=== PATIENT | female | born 1960 | race Caucasian/White ===

== ENCOUNTER 2020-11-05 13:20 | Day surgery (SDC) | payer MEDICARE ==
[2020-11-05] MEDS ORDERED: LIDOCAINE HCL 2% 100 MG/5 ML IJ ONE (13:21)
[2020-11-05] MEDS ORDERED: Depo-Medrol 40 MG/ML IM ONE (13:21)
[2020-11-05] MEDS ORDERED: DIPRIVAN 200 MG/20 ML IV ONE (15:01)
[2020-11-05] MEDS ORDERED: Lactated Ringers 1,000 ML IV ONE (15:57)
--- NOTE | 2020-11-05 16:30 | XRAY ---
Indication: Bilateral L4-S1 MBB. Intraoperative fluoroscopy provided for 17 seconds. Single digital spot image submitted for interpretation demonstrates posterior needle tips projecting over the expected left and right L4-S1 nerve roots. Correlate with intraoperative findings/report.
--- NOTE | 2020-11-05 16:45 | XRAY ---
17 seconds fluoroscopy time in surgery for bilateral L4-S1 MBB.
== END 2020-11-05 15:28 | disposition home or self-care (01) ==
LOC: SDC-PAIN 13:20
PROVIDERS: ATTEND Psychiatry & Neurology Pain Medicine
DX: M47.816 Spondylosis without myelopathy or radiculopathy, lumbar region (principal); Z79.899 Other long term (current) drug therapy
CPT/HCPCS: 64493; 64494; 64495; 72020; 77002; J1030; J2704

== ENCOUNTER 2020-12-05 13:33 | Emergency (ER) | payer MEDICARE ==
--- NOTE | 2020-12-05 13:43 | ERPHSYRPT ---
- History of Present Illness Time Seen by Provider: 12/05/20 13:43 Source: patient Exam Limitations: no limitations Physician History: This is a 60-year-old white female with a history of chronic low back pain who is a patient of Dr. Byrne, a pain specialist. Approximately November 042020 patient was given a lumbar spine steroid injection. Over the last week, despite being on oxycodone and gabapentin medication for her back pain, patient states that her low back pain is worsening and she is having trouble sleeping because of the severe back spasms. Patient has not lost bowel or bladder control. She does not complain of any numbness down her feet and ankles. Patient has an appointment to see Dr. Byrne on 12/08/2020. Patient is looking for enough pain relief for her to sleep at night. Patient does not have any recent history of acute traumatic injury to her back. Timing/Duration: week(s) (1), worse Method of Injury: other (None) Quality: other (Muscle spasm) Back Pain Location: lumbar spine, paraspinous muscles Severity of Pain-Max: moderate Severity of Pain-Current: moderate Modifying Factors: Improves With: movement Associated Symptoms: lower back pain, muscle spasms, No loss of bowel control, No problems urinating, No light-headedness, No numbness in legs/feet, No sensory/motor loss, No tingling in legs/feet Previous symptoms: same symptoms as today Allergies/Adverse Reactions: Iodinated Contrast Media Allergy (Verified 12/05/20 14:04) latex Allergy (Verified 12/05/20 14:04) metoclopramide [From Reglan] Allergy (Verified 12/05/20 14:04) naproxen Allergy (Verified 12/05/20 14:04) Sulfa (Sulfonamide Antibiotics) Allergy (Verified 12/05/20 14:04) Home Medications: Aspirin EC 81 mg [Ecotrin 81 mg] 81 mg PO DAILY 12/05/20 [History] Budesonide/Formoterol Fumarate [Symbicort 80-4.5 Mcg Inhaler] 2 puffs IH BID 12/05/20 [History] Diltiazem HCl [Cartia Xt] 180 mg PO DAILY 12/05/20 [History] Gabapentin [Neurontin] 600 mg PO DAILY 12/05/20 [History] Omeprazole 40 mg PO DAILY 12/05/20 [History] Oxycodone HCl/Acetaminophen [Oxycodone-Acetaminophen 5-325] 1 each PO Q4-6HPRN PRN 12/05/20 [History] Tiotropium Gratis [Spiriva Respimat] 1 each IH DAILY 12/05/20 [History] Travel Risk - International Travel Have you traveled outside of the country in past 3 weeks: No - Coronavirus Screening Are you exhibiting any of the following symptoms?: No Close contact with a COVID-19 positive Pt in past 14-21 Days: No - Review of Systems Constitutional: No Symptoms Eyes: No Symptoms Ears, Nose, & Throat: No Symptoms Respiratory: No Symptoms Cardiac: No Symptoms Abdominal/Gastrointestinal: No Symptoms Genitourinary Symptoms: No Symptoms Musculoskeletal: Back Pain Skin: No Symptoms Neurological: No Symptoms Psychological: No Symptoms Endocrine: No Symptoms Hematologic/Lymphatic: No Symptoms Immunological/Allergic: No Symptoms All Other Systems: Reviewed and Negative - Past Medical History Pertinent Past Medical History: Yes - Past Surgical History Past Surgical History: Yes - Nursing Vital Signs Nursing Vital Signs: Initial Vital Signs Temperature 97.5 F 12/05/20 13:51 Pulse Rate 102 H 12/05/20 13:51 Respiratory Rate 18 12/05/20 13:51 Blood Pressure 136/99 12/05/20 13:51 O2 Sat by Pulse Oximetry 97 12/05/20 13:51 Pain Scale Pain Intensity 10 - Physical Exam General Appearance: no apparent distress, alert, anxiety Eye Exam: PERRL/EOMI, eyes nml inspection Ears, Nose, Throat Exam: normal ENT inspection, moist mucous membranes Neck Exam: normal inspection, non-tender, supple, full range of motion Respiratory Exam: normal breath sounds, lungs clear, airway intact, No chest tenderness, No respiratory distress Cardiovascular Exam: regular rate/rhythm, normal heart sounds, normal peripheral pulses Gastrointestinal Exam: soft, normal bowel sounds, No tenderness Pelvic Exam: not done Rectal Exam: not done Back Exam: decreased range of motion, muscle spasm Extremity Exam: normal inspection, normal range of motion, pelvis stable Neurologic Exam: alert, oriented x 3, cooperative, pile trimmer II-XII nml as tested, normal mood/affect, nml cerebellar function, nml station & gait (Patient walks with a walker), sensation nml Skin Exam: normal color, warm, dry Lymphatic Exam: No adenopathy SpO2 Interpretation: normal O2 Delivery: Room Air - Course Nursing assessment & vital signs reviewed: Yes Ordered Tests: Medication Summary Discontinued Medications Generic Name Dose Route Start Last Admin Trade Name Freq PRN Reason Stop Dose Admin Methylprednisolone Sodium 0 mg 12/05/20 14:46 Succinate 125 mg/ Sterile IM 12/05/20 14:47 Water 2 ml STAT ONE Hydromorphone HCl 0.5 mg 12/05/20 14:45 Hydromorphone 1 Mg/Ml Injection IM 12/05/20 14:46 STAT ONE Lorazepam 0.5 mg 12/05/20 14:46 Ativan 2 Mg/1 Ml Vial IM 12/05/20 14:47 STAT ONE Ondansetron HCl 4 mg 12/05/20 14:46 Zofran Odt 4 Mg PO 12/05/20 14:47 STAT ONE - Progress Progress: unchanged Counseled pt/family regarding: diagnosis, need for follow-up - Departure Departure Disposition: Home Clinical Impression: Acute exacerbation of chronic low back pain Condition: Stable Critical Care Time: No Referrals: AURE BOLTON, [employer] [Primary Care Provider] - Additional Instructions: Take your medication as prescribed. Continue your oxycodone gabapentin as prescribed. Take the steroids as prescribed. Only use the Ativan at nighttime 2 hours after your gabapentin dose and only on an as needed basis. Prescriptions: Lorazepam 0.5 mg [Ativan 0.5 MG] 0.5 mg PO QHS PRN #3 tablet PRN Reason: Muscle Spasms Lorazepam 1 mg [Ativan 1 MG] 0.5 mg PO QHS PRN #3 tablet PRN Reason: Anxiety Prednisone 10 mg [Deltasone 10 mg] 10 mg PO TID #12 tablet
[2020-12-05] MEDS ORDERED: Hydromorphone 1 mg/ml Injection IM ONE (14:45)
[2020-12-05] MEDS ORDERED: Ativan 2 MG/1 ML VIAL IM ONE (14:46)
[2020-12-05] MEDS ORDERED: ZOFRAN ODT 4 MG PO ONE (14:46)
[2020-12-05] MEDS ORDERED: solu-MEDROL 125 MG, Sterile H2O 10 ml 2 ML IM ONE ×2 (14:46)
[2020-12-05] MEDS ORDERED: Ativan 2 MG/1 ML VIAL ONE (15:01)
[2020-12-05] MEDS ORDERED: ZOFRAN ODT 4 MG ONE (15:01)
[2020-12-05] MEDS ORDERED: solu-MEDROL ONE (15:02)
[2020-12-05] MEDS ORDERED: Sterile H2O 10 ml IJ ONE (15:02)
[2020-12-05] MEDS ORDERED: Hydromorphone 1 mg/ml Injection ONE (15:02)
[2020-12-05 15:12] VITALS: BP 152/90; PULSE 88; O2SAT 96
== END 2020-12-05 15:19 | disposition home or self-care (01) ==
LOC: ED 13:33
DX: M54.5 Low back pain (principal)
CPT/HCPCS: 96372; 99284; J1170; J2060; J2930; Q0162

== ENCOUNTER 2020-12-17 12:23 | Day surgery (SDC) | payer MEDICARE ==
[2020-12-17] MEDS ORDERED: BUPIVACAINE 0.5% VIAL IJ ONE (12:24)
[2020-12-17] MEDS ORDERED: DIPRIVAN 200 MG/20 ML IV ONE (15:57)
[2020-12-17] MEDS ORDERED: BREVIBLOC 100 MG/10 ML IV ONE (16:18)
[2020-12-17] MEDS ORDERED: Lactated Ringers 1,000 ML IV ONE (16:40)
--- NOTE | 2020-12-17 17:09 | XRAY ---
Indication: Bilateral L4-S1 MBB. Intraoperative fluoroscopy provided for 11 seconds. Single digital spot image submitted for interpretation demonstrates posterior needle tips projecting over the expected left and right L4-S1 nerve roots. Correlate with intraoperative findings/report.
--- NOTE | 2020-12-17 17:53 | XRAY ---
11 seconds of fluoroscopy was used in surgery for a bilateral L4-S1 MBB.
== END 2020-12-17 16:40 | disposition home or self-care (01) ==
LOC: SDC-PAIN 12:23
PROVIDERS: ATTEND Psychiatry & Neurology Pain Medicine
DX: M47.816 Spondylosis without myelopathy or radiculopathy, lumbar region (principal); Z79.899 Other long term (current) drug therapy
CPT/HCPCS: 64493; 64494; 72020; 77002; J2704

== ENCOUNTER 2021-01-21 12:47 | Day surgery (SDC) | payer MEDICARE ==
[2021-01-21] MEDS ORDERED: Xylocaine 1% Vial 30 ML PF IJ ONE (12:48)
[2021-01-21] MEDS ORDERED: Depo-Medrol 40 MG/ML IM ONE (12:48)
[2021-01-21] MEDS ORDERED: BUPIVACAINE 0.5% VIAL IJ ONE (12:48)
[2021-01-21] MEDS ORDERED: DIPRIVAN 200 MG/20 ML IV ONE (14:23)
[2021-01-21] MEDS ORDERED: MORPHINE SULFATE 2 MG INJ ONE (14:44)
--- NOTE | 2021-01-21 15:14 | XRAY ---
Indication: L4-S1 RFA. Intraoperative fluoroscopy provided for 24 seconds. 3 digital spot images submitted for interpretation demonstrates posterior needle tips projecting over the expected left L4-S1 nerve roots. Correlate with intraoperative findings/report.
[2021-01-21] MEDS ORDERED: Lactated Ringers 1,000 ML IV ONE (15:23)
--- NOTE | 2021-01-21 16:44 | XRAY ---
24 seconds fluoroscopy time in surgery for left L4-S1 RFA.
== END 2021-01-21 14:55 | disposition home or self-care (01) ==
LOC: SDC-PAIN 12:47
PROVIDERS: ATTEND Psychiatry & Neurology Pain Medicine
DX: M47.817 Spondylosis without myelopathy or radiculopathy, lumbosacral region (principal); Z79.899 Other long term (current) drug therapy
CPT/HCPCS: 64635; 64636; 72100; 77002; J1030; J2001; J2270; J2704

== ENCOUNTER 2021-01-28 10:52 | Day surgery (SDC) | payer MEDICARE ==
[2021-01-28] MEDS ORDERED: Xylocaine 1% Vial 30 ML PF IJ ONE (10:53)
[2021-01-28] MEDS ORDERED: BUPIVACAINE 0.5% VIAL IJ ONE (10:53)
[2021-01-28] MEDS ORDERED: Depo-Medrol 40 MG/ML IM ONE (10:53)
[2021-01-28] MEDS ORDERED: DIPRIVAN 200 MG/20 ML IV ONE (15:30)
[2021-01-28] MEDS ORDERED: TORAdol 30 mg Injection ONE (15:46)
[2021-01-28] MEDS ORDERED: Hydromorphone 1 mg/ml Injection ONE (15:57)
[2021-01-28] MEDS ORDERED: Lactated Ringers 1,000 ML IV ONE (18:08)
--- NOTE | 2021-01-28 21:17 | XRAY ---
Indication: Right L4-S1 RFA. Intraoperative fluoroscopy provided for 28 seconds. 3 digital spot image submitted for interpretation demonstrates posterior needle tips projecting over the expected right L4-S1 nerve roots. Correlate with intraoperative findings/report.
--- NOTE | 2021-01-29 09:00 | XRAY ---
28 seconds fluoroscopy time in surgery for right L4-S1 RFA.
== END 2021-01-28 16:20 | disposition home or self-care (01) ==
LOC: SDC-PAIN 10:52
PROVIDERS: ATTEND Psychiatry & Neurology Pain Medicine
DX: M47.816 Spondylosis without myelopathy or radiculopathy, lumbar region (principal); Z79.899 Other long term (current) drug therapy
CPT/HCPCS: 64635; 64636; 72100; 77002; J1030; J1170; J1885; J2001; J2704

== ENCOUNTER 2021-05-13 13:47 | Day surgery (SDC) | payer MEDICARE ==
[2021-05-13] MEDS ORDERED: Sodium Chloride 0.9% 10 ML FLUSH Syringe IJ ONE (13:48)
[2021-05-13] MEDS ORDERED: Depo-Medrol 40 MG/ML IM ONE (13:48)
[2021-05-13] MEDS ORDERED: BENADRYL 50 MG/ML ONE (14:58)
[2021-05-13] MEDS ORDERED: Lactated Ringers 1,000 ML IV ONE (16:12)
[2021-05-13] MEDS ORDERED: DIPRIVAN 200 MG/20 ML IV ONE (16:14)
[2021-05-13] MEDS ORDERED: MORPHINE SULFATE 2 MG INJ ONE (16:44)
--- NOTE | 2021-05-13 17:10 | XRAY ---
41 seconds fluoroscopy time in surgery for left L4-S1 transforaminal TABITHA.
--- NOTE | 2021-05-13 17:10 | XRAY ---
Indication: Left L4-S1 transforaminal TABITHA. Intraoperative fluoroscopy provided for 41 seconds. 5 digital spot image submitted for interpretation demonstrates posterior needle tips projecting over the left L4 and L5 nerve roots. Small amount of contrast injected for needle tip placement. Correlate with intraoperative findings/report.
== END 2021-05-13 17:00 | disposition home or self-care (01) ==
LOC: SDC-PAIN 13:47
PROVIDERS: ATTEND Psychiatry & Neurology Pain Medicine
DX: M54.16 Radiculopathy, lumbar region (principal); I10 Essential (primary) hypertension; I48.91 Unspecified atrial fibrillation; Z79.899 Other long term (current) drug therapy
CPT/HCPCS: 64483; 64484; 72100; 77003; J1030; J1200; J2270; J2704; Q9966

== ENCOUNTER 2021-10-07 11:23 | Day surgery (SDC) | payer MEDICARE ==
[2021-10-07] MEDS ORDERED: Sodium Chloride 0.9(Preservative Free) 10 ML IJ ONE (11:24)
[2021-10-07] MEDS ORDERED: LIDOCAINE HCL 1% 50 MG/5 ML VL PF IJ ONE (11:24)
[2021-10-07] MEDS ORDERED: Depo-Medrol 40 MG/ML IM ONE ×2 (11:24)
[2021-10-07] MEDS ORDERED: Marcaine Mpf 0.5% Vial 30 Ml IJ ONE (11:24)
[2021-10-07] MEDS ORDERED: BENADRYL 50 MG/ML ONE (12:18)
[2021-10-07] MEDS ORDERED: DIPRIVAN 200 MG/20 ML IV ONE ×2 (12:59→13:11)
[2021-10-07] MEDS ORDERED: MORPHINE SULFATE 2 MG INJ ONE ×2 (13:18→13:34)
--- NOTE | 2021-10-07 13:46 | XRAY ---
Indication: Left L4-S1 transforaminal TABITHA. Intraoperative fluoroscopy provided for 1 minute 4 seconds. 4 digital spot image submitted for interpretation demonstrates posterior needle tips projecting over the expected left L4 and L5 nerve roots. Small amount of contrast injected for needle tip placement. Correlate with intraoperative findings/report.
--- NOTE | 2021-10-07 14:59 | XRAY ---
1 minute and 4 seconds fluoroscopy time in surgery for left L4-S1 transforaminal TABITHA>
[2021-10-07] MEDS ORDERED: Lactated Ringers 1,000 ML IV ONE (15:12)
== END 2021-10-07 13:27 | disposition home or self-care (01) ==
LOC: SDC-PAIN 11:23
PROVIDERS: ATTEND Psychiatry & Neurology Pain Medicine
DX: M54.16 Radiculopathy, lumbar region (principal); Z79.899 Other long term (current) drug therapy
CPT/HCPCS: 64483; 64484; 72100; 77003; J1030; J1200; J2001; J2270; J2704; Q9966

== ENCOUNTER 2022-06-30 13:40 | Day surgery (SDC) | payer MEDICARE ==
[2022-06-30] MEDS ORDERED: BUPIVACAINE 0.5% VIAL IJ ONE (13:41)
[2022-06-30] MEDS ORDERED: Depo-Medrol 40 MG/ML IM ONE (13:41)
[2022-06-30] MEDS ORDERED: LIDOCAINE HCL 1% 50 MG/5 ML VL PF IJ ONE (13:41)
[2022-06-30] MEDS ORDERED: DIPRIVAN 200 MG/20 ML IV ONE ×2 (16:14→16:23)
[2022-06-30] MEDS ORDERED: MORPHINE SULFATE 2 MG INJ ONE (16:32)
--- NOTE | 2022-06-30 16:47 | XRAY ---
Indication: Left L4-S1 RFA. Intraoperative fluoroscopy provided for 15 seconds. 3 digital spot image submitted for interpretation demonstrates posterior needle tips projecting over the expected left L4-S1 nerve roots. Correlate with intraoperative findings/report.
[2022-06-30] MEDS ORDERED: Lactated Ringers 1,000 ML IV ONE (17:16)
--- NOTE | 2022-07-01 08:42 | XRAY ---
15 seconds of fluoroscopy was used in surgery for a left L4-S1 RFA.
== END 2022-06-30 16:48 | disposition home or self-care (01) ==
LOC: SDC-PAIN 13:40
PROVIDERS: ATTEND Psychiatry & Neurology Pain Medicine
DX: M47.816 Spondylosis without myelopathy or radiculopathy, lumbar region (principal); Z79.899 Other long term (current) drug therapy
CPT/HCPCS: 64635; 64636; 72100; 77002; J1030; J2001; J2270; J2704

== ENCOUNTER 2022-07-14 14:05 | Day surgery (SDC) | payer MEDICARE ==
[2022-07-14] MEDS ORDERED: Depo-Medrol 40 MG/ML IM ONE (14:06)
[2022-07-14] MEDS ORDERED: XYLOCAINE 1% HCL 20 ML MDV IJ ONE (14:06)
[2022-07-14] MEDS ORDERED: BUPIVACAINE 0.5% VIAL IJ ONE (14:06)
[2022-07-14] MEDS ORDERED: TORAdol 30 mg Injection ONE (15:25)
[2022-07-14] MEDS ORDERED: BENADRYL 50 MG/ML ONE (15:28)
[2022-07-14] MEDS ORDERED: Zofran 4 MG/2 ML VIAL ONE (15:28)
[2022-07-14] MEDS ORDERED: DIPRIVAN 200 MG/20 ML IV ONE (15:33)
[2022-07-14] MEDS ORDERED: Lactated Ringers 1,000 ML IV ONE (15:41)
--- NOTE | 2022-07-14 16:37 | XRAY ---
Indication: Right L4-S1 RFA. Intraoperative fluoroscopy provided for 23 seconds. 4 digital spot images submitted for interpretation demonstrates posterior needle tips projecting over the expected right L4-S1 nerve roots. Correlate with intraoperative findings/report.
--- NOTE | 2022-07-14 16:43 | XRAY ---
23 seconds of fluoroscopy was used in surgery for a right L4-S1 RFA.
== END 2022-07-14 16:20 | disposition home or self-care (01) ==
LOC: SDC-PAIN 14:05
PROVIDERS: ATTEND Psychiatry & Neurology Pain Medicine
DX: M47.816 Spondylosis without myelopathy or radiculopathy, lumbar region (principal); Z79.899 Other long term (current) drug therapy
CPT/HCPCS: 64635; 64636; 72100; 77002; J1030; J1200; J1885; J2405; J2704

== ENCOUNTER 2022-11-17 12:45 | Day surgery (SDC) | payer MEDICARE ==
[2022-11-17] MEDS ORDERED: Sodium Chloride 0.9(Preservative Free) 10 ML IJ ONE (12:46)
[2022-11-17] MEDS ORDERED: Depo-Medrol 40 MG/ML IM ONE (12:46)
[2022-11-17] MEDS ORDERED: DIPRIVAN 200 MG/20 ML IV ONE (16:14)
[2022-11-17] MEDS ORDERED: MORPHINE SULFATE 2 MG INJ ONE (16:30)
[2022-11-17] MEDS ORDERED: Lactated Ringers 1,000 ML IV ONE (16:54)
--- NOTE | 2022-11-17 20:07 | XRAY ---
Indication: Left L4-S1 transforaminal TABITHA. Intraoperative fluoroscopy provided for 30 seconds. 4 digital spot images submitted for interpretation demonstrates posterior needle tips projecting over the expected left L4 and L5 nerve roots. Small amount of contrast injected for needle tip placement. Correlate with intraoperative findings/report.
--- NOTE | 2022-11-18 11:42 | XRAY ---
30 seconds of fluoroscopy was used in surgery for a left L4-S1 transforaminal TABITHA.
== END 2022-11-17 16:45 | disposition home or self-care (01) ==
LOC: SDC-PAIN 12:45
PROVIDERS: ATTEND Psychiatry & Neurology Pain Medicine
DX: M54.16 Radiculopathy, lumbar region (principal)
CPT/HCPCS: 64483; 64484; 72100; 77003; J1030; J2270; J2704; Q9966

== ENCOUNTER 2023-04-27 12:10 | Day surgery (SDC) | payer MEDICARE ==
[2023-04-27] MEDS ORDERED: XYLOCAINE-MPF 1% 5ML SDV IJ ONE (12:11)
[2023-04-27] MEDS ORDERED: Depo-Medrol 40 MG/ML IM ONE (12:11)
[2023-04-27] MEDS ORDERED: BUPIVACAINE 0.5% VIAL IJ ONE (12:11)
[2023-04-27] MEDS ORDERED: DIPRIVAN 200 MG/20 ML IV ONE ×2 (14:18→14:26)
[2023-04-27] MEDS ORDERED: MORPHINE SULFATE 2 MG INJ ONE (14:40)
--- NOTE | 2023-04-27 15:00 | XRAY ---
Indication: Right L4-S1 RFA. Intraoperative fluoroscopy provided for 29 seconds. 5 digital spot image submitted for interpretation demonstrates posterior needle tips projecting over the expected right L4-S1 nerve roots. Correlate with intraoperative findings/report.
[2023-04-27] MEDS ORDERED: Lactated Ringers 1,000 ML IV ONE (15:51)
--- NOTE | 2023-04-27 16:56 | XRAY ---
29 seconds of fluoroscopy was used in surgery for a right L4-S1 RFA.
== END 2023-04-27 15:10 | disposition home or self-care (01) ==
LOC: SDC-PAIN 12:10
PROVIDERS: ATTEND Psychiatry & Neurology Pain Medicine
DX: M47.816 Spondylosis without myelopathy or radiculopathy, lumbar region (principal)
CPT/HCPCS: 64635; 64636; 72100; 77002; J1030; J2270; J2704

== ENCOUNTER 2023-07-28 11:17 | Day surgery (SDC) | payer MEDICARE ==
[2023-07-28] MEDS ORDERED: Sodium Chloride 0.9(Preservative Free) 10 ML IJ ONE (11:18)
[2023-07-28] MEDS ORDERED: Decadron 4 MG INJ IV ONE (11:18)
[2023-07-28] MEDS ORDERED: DIPRIVAN 200 MG/20 ML IV ONE (13:47)
[2023-07-28] MEDS ORDERED: BENADRYL 50 MG/ML ONE (14:03)
[2023-07-28] MEDS ORDERED: MORPHINE SULFATE 2 MG INJ ONE (14:04)
[2023-07-28] MEDS ORDERED: DECADRON 10MG INJ. IM ONE (14:12)
--- NOTE | 2023-07-28 15:05 | XRAY ---
Indication: Left L4-S1 transforaminal TABITHA. Intraoperative fluoroscopy provided for 26 seconds. 3 digital spot images submitted for interpretation demonstrates posterior needle tips projecting over left L4 and L5 nerve roots. Small amount of contrast injected for needle tip placement. Correlate with intraoperative findings/report.
--- NOTE | 2023-07-28 15:09 | XRAY ---
26 seconds of fluoroscopy was used in surgery for a left L4-S1 transforaminal TABITHA.
[2023-07-28] MEDS ORDERED: Lactated Ringers 1,000 ML IV ONE (15:23)
== END 2023-07-28 15:05 | disposition home or self-care (01) ==
LOC: SDC-PAIN 11:17
PROVIDERS: ATTEND Psychiatry & Neurology Pain Medicine
DX: M54.16 Radiculopathy, lumbar region (principal)
CPT/HCPCS: 64483; 64484; 72100; 77003; J1100; J1200; J2270; J2704; Q9966

== ENCOUNTER 2024-01-25 13:54 | Day surgery (SDC) | payer MEDICARE, OTHER ==
[2024-01-25] MEDS ORDERED: Depo-Medrol 40 MG/ML IM ONE (13:55)
[2024-01-25] MEDS ORDERED: BUPIVACAINE 0.5% VIAL IJ ONE (13:55)
[2024-01-25] MEDS ORDERED: LIDOCAINE HCL 1% AMPUL 5 ML IJ ONE (13:55)
[2024-01-25] MEDS ORDERED: BENADRYL 50 MG/ML ONE (14:52)
[2024-01-25] MEDS ORDERED: Lactated Ringers 1,000 ML IV ONE (15:11)
[2024-01-25] MEDS ORDERED: DIPRIVAN 200 MG/20 ML IV ONE ×2 (15:14→15:22)
[2024-01-25] MEDS ORDERED: Xylocaine-Mpf 2% 5 Ml Vial ONE (15:16)
--- NOTE | 2024-01-25 16:38 | XRAY ---
Indication: Left L4-S1 RFA. Intraoperative fluoroscopy provided for 28 seconds. 6 digital spot image submitted for interpretation demonstrates posterior needle tips projecting over the expected left L4-S1 nerve roots. Correlate with intraoperative findings/report.
--- NOTE | 2024-01-25 16:58 | XRAY ---
28 seconds of fluoroscopy was used in surgery for a left L4-S1 RFA.
== END 2024-01-25 15:57 | disposition home or self-care (01) ==
LOC: SDC-PAIN 13:54
PROVIDERS: ATTEND Psychiatry & Neurology Pain Medicine
DX: M47.816 Spondylosis without myelopathy or radiculopathy, lumbar region (principal)
CPT/HCPCS: 64635; 64636; 72100; 77002; J1200; J2704

== ENCOUNTER 2024-05-09 09:17 | Observation (INO) | payer MEDICARE, OTHER ==
[2024-05-09] MEDS ORDERED: Versed 2 MG/2 ML Injection ONE (09:46)
[2024-05-09] MEDS ORDERED: propofoL IV ONE (10:35)
[2024-05-09] MEDS ORDERED: BENADRYL 50 MG/ML ONE ×3 (10:59→13:06)
--- NOTE | 2024-05-09 12:00 | XRAY ---
Indication: Caudal TABITHA. Intraoperative fluoroscopy provided for 13 seconds. 2 digital spot image submitted for interpretation demonstrates caudal needle tip projecting mid sacrum. Small amount of contrast injected for needle tip placement. Correlate with intraoperative findings/report.
--- NOTE | 2024-05-09 12:32 | XRAY ---
13 seconds of fluoroscopy was used in surgery for a caudal TABITHA.
[2024-05-09] MEDS ORDERED: Depo-Medrol 40 MG/ML IM ONE (12:35)
[2024-05-09] MEDS ORDERED: Sodium Chloride 0.9(Preservative Free) 10 ML IJ ONE (12:35)
--- NOTE | 2024-05-09 12:46 | PCM.HP ---
<RUSTAM SERRATO - Last Filed: 05/09/24 13:10> History of Present Illness - Chief Complaint Chief Complaint: allergic reaction Date: 05/09/24 History of Present Illness: is a 64 year old female with a pmhx of CHF, CKD stage 3, HTN, HLD, AFIB, OP, OA, Parkinsons disease, and neuropathy directly admitted 05/09/24 after an allergic reaction s/p TABITHA with Dr. Byrne. Patient states she received the same injection last year and also had a mild reaction. Currently patient reports mild SOB and tingling of her lips. She has redness and edema to her right eye and chin area. No distress noted on exam. Lungs clear on auscultation. Patient breathing and talking with no effort. - Review of Systems Constitutional: No Symptoms Eyes: Other (erythema/edema to left upper eyelind and chin) Ears, Nose, & Throat: Nose Congestion Respiratory: Short Of Breath Cardiac: Edema (BLE +3 pitting ) Abdominal/Gastrointestinal: No Symptoms Genitourinary Symptoms: No Symptoms Musculoskeletal: No Symptoms Neurological: No Symptoms Psychological: No Symptoms Endocrine: No Symptoms Hematologic/Lymphatic: No Symptoms Immunological/Allergic: No Symptoms Medications & Allergies Home Medications: Home Medication List Budesonide/Formoterol Fumarate [Symbicort 80-4.5 Mcg Inhaler] 2 puffs IH BID 12/05/20 [History Confirmed 05/09/24] dilTIAZem HCL [Cartia Xt] 240 mg PO DAILY 12/05/20 [History Confirmed 05/09/24] Albuterol Common Canister [Ventolin Common Canister] 2 inh IH Q4HPRN PRN 05/09/24 [History Confirmed 05/09/24] Atorvastatin Calcium 40 mg PO HS 05/09/24 [History Confirmed 05/09/24] Bisacodyl 5 mg [Dulcolax 5 mg] 5 mg PO DAILY PRN 05/09/24 [History Confirmed 05/09/24] Buspirone HCl 5 mg [Buspar 5 mg] 10 mg PO TID 05/09/24 [History Confirmed 05/09/24] Carbidopa/Levodopa [Carbidopa-Levo ER 25-100 Tab] 1 tab PO TID 05/09/24 [History Confirmed 05/09/24] Cyanocobalamin 1000 Mcg/ml [Cyanocobalamin B-12 1000 MCG/ML] 1,000 mcg IJ UD 05/09/24 [History Confirmed 05/09/24] Cyclobenzaprine HCl 10 mg [Cyclobenzaprine 10 MG] 10 mg PO TID PRN 05/09/24 [History Confirmed 05/09/24] Denosumab 60 mg [Prolia 60 mg Injection] 60 mg SQ UD 05/09/24 [History Confirmed 05/09/24] Ergocalciferol (Vitamin D2) [Vitamin D2] 1,250 mcg PO WEEKLY 05/09/24 [History Confirmed 05/09/24] Famotidine 40 mg PO DAILY 05/09/24 [History Confirmed 05/09/24] Hydrocodone/Acetaminophen [Hydrocodone-Acetamin 10-325 mg] 1 each PO UD 05/09/24 [History Confirmed 05/09/24] Ipratropium/Albuterol Sulfate [Iprat-Albut 0.5-3(2.5) mg/3 ml] 1 inh IH QID 05/09/24 [History Confirmed 05/09/24] Isosorbide Mononitrate 30 mg [Imdur 30 MG] 30 mg PO DAILY 05/09/24 [History Confirmed 05/09/24] Loratadine 10 mg [Claritin 10 mg] 10 mg PO DAILY 05/09/24 [History Confirmed 05/09/24] Lorazepam 1 mg [Ativan 1 MG] 0.5 mg PO BID PRN 05/09/24 [History Confirmed 05/09/24] Magnesium Oxide [Magnesium] 400 mg PO BID 05/09/24 [History Confirmed 05/09/24] Metolazone 2.5 mg [Zaroxolyn 2.5 MG] 2.5 mg PO QAM 05/09/24 [History Confirmed 05/09/24] Metoprolol Succinate 25 mg Xl* [Toprol-Xl 25MG Tablets] 25 mg PO QAM 05/09/24 [History Confirmed 05/09/24] Midodrine HCl 2.5 mg PO TID 05/09/24 [History Confirmed 05/09/24] Mirtazapine 7.5 mg PO HS 05/09/24 [History Confirmed 05/09/24] Pantoprazole 20 mg [Protonix 20MG Tablet] 40 mg PO BID 05/09/24 [History Confirmed 05/09/24] Pramipexole Di-HCl [Pramipexole Dihydrochloride] 1 mg PO HS 05/09/24 [History Confirmed 05/09/24] Rivaroxaban [Xarelto] 15 mg PO DAILY 05/09/24 [History Confirmed 05/09/24] Sertraline HCl 50 mg [Zoloft 50 mg Tablet] 50 mg PO QAM 05/09/24 [History Confirmed 05/09/24] Sertraline HCl 50 mg [Zoloft 50 mg Tablet] 100 tab PO QAM 05/09/24 [History Confirmed 05/09/24] Spironolactone 25 mg [Aldactone 25 MG] 25 mg PO DAILY 05/09/24 [History Confirmed 05/09/24] Sucralfate 1 gm [Carafate 1 GM] 1 g PO DAILY PRN 05/09/24 [History Confirmed 05/09/24] Tamsulosin HCl 0.4 mg [Flomax 0.4 MG] 0.4 mg PO DAILY 05/09/24 [History Confirmed 05/09/24] Torsemide 20 mg [Demadex 20 mg] 20 mg PO DAILY 05/09/24 [History Confirmed 05/09/24] diphenhydrAMINE HCL [Benadryl] 50 mg PO Q6H PRN 05/09/24 [History Confirmed 05/09/24] Allergies/Adverse Reactions: Allergies Allergy/AdvReac Type Severity Reaction Status Date / Time ceftriaxone [From Rocephin] Allergy Verified 05/09/24 14:08 Iodinated Contrast Media Allergy Verified 12/05/20 14:04 latex Allergy Verified 12/05/20 14:04 metoclopramide [From Reglan] Allergy Verified 12/05/20 14:04 naproxen Allergy Verified 12/05/20 14:04 Sulfa (Sulfonamide Allergy Verified 12/05/20 14:04 Antibiotics) - Past Medical History Past Medical History: Yes Neurological History: Peripheral Neuropathy, Other Cardiac History: Arrhythmia (AFIB), Congenital Heart Disease, Coronary Artery Disease, High Cholesterol, Hypertension Respiratory History: COPD Comment: Parkinson's. a-fib/flutter. CKD stage 3 - Past Surgical History Past Surgical History: Yes GI Surgical History: Cholecystectomy, Hernia Repair Musculskeletal Surgical Hx: Joint Replacement Other Surgical History: bilat knee. L shoulder. L hip Significant Family History: heart disease, cancer, diabetes - Social History Smoking Status: Never smoker Alcohol: None Drug Use: none - Physical Exam General Appearance: no apparent distress Neurologic Exam: alert, oriented x 3, cooperative Eye Exam: PERRL/EOMI, EOM palsy/anisocoria Neck Exam: normal inspection Respiratory Exam: normal breath sounds, lungs clear Cardiovascular Exam: regular rate/rhythm, normal heart sounds Gastrointestinal/Abdomen Exam: soft, normal bowel sounds Pelvic Exam: not done Rectal Exam: deferred Back Exam: normal inspection Extremity Exam: normal inspection Skin Exam: normal color Results - Radiology Impressions Radiology Exams & Impressions: Radiology Procedures Category Date Time Status FLUORO FOR TABITHA-PMG Routine Exams 05/09/24 10:12 Completed SACRUM AND COCCYX Routine Exams 05/09/24 10:12 Completed Assessment/Plan (1) Allergic reaction caused by a drug Current Visit: Yes Status: Acute Assessment & Plan: -Decadron 4mg stat now, then BID -Discussed with pharmacy - patient can have 50mg benadryl now -pepcid 20mg bid -RT eval with supplemental oxygen as needed to maintain spo2 > 92% -IVF contraindicated with CHF and hypervolemia -albuterol prn for bronchospasm Code(s): T78.40XA - ALLERGY, UNSPECIFIED, INITIAL ENCOUNTER (2) Chronic back pain Current Visit: Yes Status: Acute Assessment & Plan: -Pain management with Dr. Byrne -Mli Code(s): M54.9 - DORSALGIA, UNSPECIFIED; G89.29 - OTHER CHRONIC PAIN (3) HTN (hypertension) Current Visit: Yes Status: Acute Assessment & Plan: -continue home meds Code(s): I10 - ESSENTIAL (PRIMARY) HYPERTENSION (4) Afib Current Visit: Yes Status: Acute Assessment & Plan: -continue home meds and xarelto Code(s): I48.91 - UNSPECIFIED ATRIAL FIBRILLATION (5) HLD (hyperlipidemia) Current Visit: Yes Status: Acute Assessment & Plan: -continue home statin Code(s): E78.5 - HYPERLIPIDEMIA, UNSPECIFIED (6) Parkinson disease Current Visit: Yes Status: Acute Assessment & Plan: -continue home meds Code(s): G20.A1 - PARKINSON'S DIS W/O DYSKINESIA, W/O MENTION OF FLUCTUATIONS (7) Neuropathy Current Visit: Yes Status: Acute Assessment & Plan: -continue home meds VTE: xarelto PPI: pepcid Dispo: tomorrow Code(s): G62.9 - POLYNEUROPATHY, UNSPECIFIED <KORAISHY,MELLY - Last Filed: 05/09/24 23:20> History of Present Illness - Chief Complaint History of Present Illness: is a 64 year old female. - Physical Exam Vital Signs: Vital Signs - 24 hr Temp Pulse Resp BP Pulse Ox 05/09/24 20:00 97.3 F 98 H 16 104/74 94 L 05/09/24 19:21 93 H 16 90 L 05/09/24 16:20 89 16 94 L 05/09/24 16:00 97.8 F 80 20 103/58 94 L 05/09/24 13:27 97.8 F 80 20 103/58 94 L Wound Assessment: Skin/Wound Assessment Wound/Incision Assessment Start: 05/09/24 13:51 Text: Status: Active Freq: Q6H Protocol: Document 05/09/24 19:51 KX (Rec: 05/09/24 20:39 KX [id number]) Wound/Incision Assessment Buttock Wound Assessment Shift Assessment Wound Type Pressure Ulcer Wound Stage Stage I Drainage Amount None General Appearance Open to air Surrounding Tissue [place] Comment redness that blanches in some areas, A few open spots but look in the healing stages. Patient denies pain to this area. Barrier cream applied. Remains true Wound Photo Photo Taken No Results - Labs Lab/Micro Results: Lab Results-Last 24 Hours 05/09/24 05/09/24 Range/Units 13:26 13:26 WBC 4.3 (3.98-10.04) x10^3/uL RBC 3.95 (3.93-5.22) x10^6/uL Hgb 10.9 L (11.2-15.7) g/dL Hct 34.4 (34.1-44.9) % MCV 87.1 (79.4-94.8) fL MCH 27.6 (25.6-32.2) pg MCHC 31.7 L (32.2-35.5) g/dL RDW 16.0 H (11.7-14.4) % Plt Count 127 L (182-369) x10^3/uL MPV 11.4 (9.4-12.3) fL Sodium 136 (135-145) mmol/L Potassium 4.0 (3.5-5.1) mmol/L Chloride 102 (98-107) mmol/L Carbon Dioxide 30 (22-30) mmol/L Anion Gap 8.5 (5-15) MEQ/L BUN 23 H (7-17) mg/dL Creatinine 1.23 H (0.52-1.04) mg/dL Estimated GFR 49.7 ML/MIN Glucose 127 H (74-106) mg/dL Calcium 8.4 (8.4-10.2) mg/dL Total Bilirubin 0.40 (0.2-1.3) mg/dL AST 26 (14-36) U/L ALT 8 (0-35) U/L Alkaline Phosphatase 101 (38-126) U/L Serum Total Protein 6.4 (6.3-8.2) g/dL Albumin 3.9 (3.5-5.0) g/dL - Radiology Impressions Radiology Exams & Impressions: Radiology Procedures Category Date Time Status CHEST 2 VIEWS (PA AND LAT) Routine Exams 05/09/24 13:27 Completed FLUORO FOR TABITHA-PMG Routine Exams 05/09/24 10:12 Completed SACRUM AND COCCYX Routine Exams 05/09/24 10:12 Completed - Other Procedures and Tests Respiratory Therapy 05/10/24 07:00 Respiratory Therapy Assessment DAILY LUIS Encounter - LUIS Encounter Attestation LUIS Encounter Attestation: "IhavepersonallyseenandexaminedCODY ARREDONDO andhavediscussed pertinent aspects of their care with Rustam Serrato and agree with the history, physical exam (any modifications based on my personal exam will be noted below), assessment, and plan as outlined in original note. Please see immediately below for my summary of findings and additional assessment and plan along with any meaningful corrections/explanations to the Subjective/Objective portions of the LUIS note will be noted." My portion of the encounter took place via telemedicine. -Patient admitted directly from pain management office due to allergic reaction to depo medrol after a SI joint injection. Similar episode about 1 year ago. She has swelling and redness around eyes, lips but no difficulty breathing or talking. Has responded to dexamethasone in the past which we will use, along with pepcid. Anticipate discharge tomorrow.
[2024-05-09] MEDS ORDERED: BENADRYL 50 MG/ML IV PRN ×2 (12:55→12:58)
[2024-05-09] MEDS ORDERED: DECADRON 10MG INJ. ONE (13:06)
[2024-05-09] MEDS: DECADRON 10MG INJ. IV ONE (13:08)
[2024-05-09] MEDS: BENADRYL 50 MG/ML IV ONE (13:08)
[2024-05-09] MEDS: NORCO 5/325 MG PO PRN (13:14)
[2024-05-09] MEDS ORDERED: Zofran 4 MG/2 ML VIAL IV PRN (13:27)
[2024-05-09] MEDS ORDERED: TYLENOL 325 MG PO PRN (13:27)
[2024-05-09 13:34] LABS: Hematocrit 34.4 % (34.1-44.9); Hemoglobin 10.9 g/dL (11.2-15.7); Mean Cell Volume 87.1 fL (79.4-94.8); Mean Corpuscular Hemoglobin 27.6 pg (25.6-32.2); Mean Corpuscular Hgb Concent. 31.7 g/dL (32.2-35.5); Mean Platelet Volume 11.4 fL (9.4-12.3); Platelet Count 127 x10^3/uL (182-369); Red Blood Count 3.95 x10^6/uL (3.93-5.22); White Blood Count 4.3 x10^3/uL (3.98-10.04)
[2024-05-09 13:52] LABS: ALBUMIN 3.9 g/dL (3.5-5.0); ANION GAP 8.5 MEQ/L (5-15); BILIRUBIN,TOTAL 0.4 mg/dL (0.2-1.3); Calcium 8.4 mg/dL (8.4-10.2); Creatinine 1 1.23 mg/dL (0.52-1.04); EST GLOMERULAR FILTRATION RATE 49.7 ML/MIN; Total Protein 6.4 g/dL (6.3-8.2)
--- NOTE | 2024-05-09 14:01 | XRAY ---
Indication: Short of breath. Comparison: None PA/lateral chest hyperinflated with minimal left lung base subsegmental atelectasis/scarring. No focal infiltrate, consolidation, or large effusion. Heart not enlarged with tortuous descending aorta. Bony thorax intact with osteopenia, mild degenerative changes, moderate dextroscoliosis centered at thoracolumbar junction, old bilateral rib fractures, and left shoulder arthroplasty. Impression: Nonacute hyperinflated chest with chronic features.
[2024-05-09] MEDS: DEXAMETHASONE 10 MG/ML VIAL PF IV ONE (14:40)
[2024-05-09] MEDS: DECADRON 10MG INJ. IM ONE (14:41)
[2024-05-09] MEDS ORDERED: Ativan 1 MG PO PRN (15:18)
[2024-05-09] MEDS ORDERED: VENTOLIN COMMON CANISTER IH PRN (15:18)
[2024-05-09] MEDS ORDERED: Carafate 1 GM PO PRN (15:18)
[2024-05-09] MEDS ORDERED: Cyclobenzaprine 10 MG PO PRN (15:18)
[2024-05-09] MEDS: Pepcid 20 MG PO SCH (17:12)
[2024-05-09] MEDS ORDERED: Pepcid 20 MG ONE (17:12)
[2024-05-09] MEDS ORDERED: DUONEB 0.5-3 MG/3 ml Neb IH SCH (19:00)
[2024-05-09] MEDS: Advair Hfa 115/21 Common canister IH SCH (19:21)
[2024-05-09] MEDS: DUONEB 0.5-3 MG/3 ml Neb IH PRN (19:23)
[2024-05-09] MEDS: Sinemet CR 50/200 MG PO SCH (22:00)
[2024-05-09] MEDS ORDERED: NON-FORMULARY ITEM (Mirtazapine [Mirtazapine] 7.5 MG Tablet) PO SCH (22:00)
[2024-05-09] MEDS ORDERED: NON-FORMULARY ITEM (Magnesium Oxide [Magnesium] 400 MG Tablet) PO SCH (22:00)
[2024-05-09] MEDS: BUSPAR 5 MG PO SCH (22:00)
[2024-05-09] MEDS: MAG-OX 400 PO SCH (22:00)
[2024-05-09] MEDS ORDERED: NON-FORMULARY ITEM (Carbidopa/Levodopa [Carbidopa-Levo Er 25-100 Tab] 1 EACH Tablet.Er) PO SCH (22:00)
[2024-05-09] MEDS ORDERED: Protonix 20MG Tablet PO SCH (22:00)
[2024-05-09] MEDS ORDERED: DECADRON 10MG INJ. IV SCH (22:00)
[2024-05-09] MEDS: Protonix 40MG Tablet PO SCH (22:00)
[2024-05-09] MEDS: Mirapex 0.5 MG Tablet PO SCH (22:01)
[2024-05-09] MEDS: MIRTAZAPINE PO SCH (22:02)
[2024-05-09] MEDS: LIPITOR 40MG PO SCH (22:02)
[2024-05-09] MEDS: PROAMATINE PO SCH (22:03)
[2024-05-09] MEDS: dexAMETHasone sodium phosphate IV SCH (22:04)
[2024-05-09] MEDS: BENADRYL 50 MG/ML IV PRN (22:12)
--- NOTE | 2024-05-10 05:16 | PCM.DS ---
Discharge Summary Date of Admission: 05/09/24 12:34 Date of Discharge: 05/10/24 Admitting Physician: MELLY FAJARDO MD Primary Care Provider: NEAL HERNANDEZ MD Allergies Allergies ceftriaxone [From Rocephin] Allergy (Verified 05/09/24 14:08) Iodinated Contrast Media Allergy (Verified 12/05/20 14:04) latex Allergy (Verified 12/05/20 14:04) metoclopramide [From Reglan] Allergy (Verified 12/05/20 14:04) naproxen Allergy (Verified 12/05/20 14:04) Sulfa (Sulfonamide Antibiotics) Allergy (Verified 12/05/20 14:04) Hospital Summary - Hospital Course Hospital Course: is a 64 year old female with a pmhx of CHF, CKD stage 3, HTN, HLD, AFIB, OP, OA, Parkinsons disease, and neuropathy directly admitted 05/09/24 after an allergic reaction s/p TABITHA with Dr. Byrne. Patient states she received the same injection last year and also had a mild reaction. Currently patient reports mild SOB and tingling of her lips. She has redness and edema to her right eye and chin area. No distress noted on exam. Lungs clear on auscultation. Patient breathing and talking with no effort. No overnight events noted. Erythema and edema resolved. Can discharge home. labs and vitals stable. Discharge Note Latest Assessment & Plan (1) Allergic reaction caused by a drug Current Visit: Yes Status: Acute Assessment & Plan: -Decadron 4mg stat now, then BID -Discussed with pharmacy - patient can have 50mg benadryl now -pepcid 20mg bid -RT eval with supplemental oxygen as needed to maintain spo2 > 92% -IVF contraindicated with CHF and hypervolemia -albuterol prn for bronchospasm Code(s): T78.40XA - ALLERGY, UNSPECIFIED, INITIAL ENCOUNTER (2) Chronic back pain Current Visit: Yes Status: Acute Assessment & Plan: -Pain management with Dr. Byrne -[place] Code(s): M54.9 - DORSALGIA, UNSPECIFIED; G89.29 - OTHER CHRONIC PAIN (3) HTN (hypertension) Current Visit: Yes Status: Acute Assessment & Plan: -continue home meds Code(s): I10 - ESSENTIAL (PRIMARY) HYPERTENSION (4) Afib Current Visit: Yes Status: Acute Assessment & Plan: -continue home meds and xarelto Code(s): I48.91 - UNSPECIFIED ATRIAL FIBRILLATION (5) HLD (hyperlipidemia) Current Visit: Yes Status: Acute Assessment & Plan: -continue home statin Code(s): E78.5 - HYPERLIPIDEMIA, UNSPECIFIED (6) Parkinson disease Current Visit: Yes Status: Acute Assessment & Plan: -continue home meds Code(s): G20.A1 - PARKINSON'S DIS W/O DYSKINESIA, W/O MENTION OF FLUCTUATIONS (7) Neuropathy Current Visit: Yes Status: Acute Assessment & Plan: -continue home meds I spent 35 minutes [id number] with the patient on the day of discharge performing discharge exam, discussing hospital stay and discharge instructions with patient and caregivers, preparation of discharge records, prescriptions & referral forms and addressing any questions/concerns the patient had as documented above. - Vitals & Intake/Output Vital Signs: Vital Signs Temperature 97.8 F 05/10/24 03:59 Pulse Rate 96 H 05/10/24 03:59 Respiratory Rate 17 05/10/24 03:59 Blood Pressure 104/74 05/10/24 03:59 O2 Sat by Pulse Oximetry 95 05/10/24 03:59 Intake & Output: Intake & Output 05/07/24 05/08/24 05/09/24 05/10/24 11:59 11:59 11:59 11:59 Intake Total 1080 Balance 1080 Weight 74.5 kg - Lab Result Diagrams: 05/10/24 05:15 05/10/24 05:15 Lab Results-Last 24 Hrs: Lab Results-Last 24 Hours 05/09/24 05/09/24 Range/Units 13:26 13:26 WBC 4.3 (3.98-10.04) x10^3/uL RBC 3.95 (3.93-5.22) x10^6/uL Hgb 10.9 L (11.2-15.7) g/dL Hct 34.4 (34.1-44.9) % MCV 87.1 (79.4-94.8) fL MCH 27.6 (25.6-32.2) pg MCHC 31.7 L (32.2-35.5) g/dL RDW 16.0 H (11.7-14.4) % Plt Count 127 L (182-369) x10^3/uL MPV 11.4 (9.4-12.3) fL Sodium 136 (135-145) mmol/L Potassium 4.0 (3.5-5.1) mmol/L Chloride 102 (98-107) mmol/L Carbon Dioxide 30 (22-30) mmol/L Anion Gap 8.5 (5-15) MEQ/L BUN 23 H (7-17) mg/dL Creatinine 1.23 H (0.52-1.04) mg/dL Estimated GFR 49.7 ML/MIN Glucose 127 H (74-106) mg/dL Calcium 8.4 (8.4-10.2) mg/dL Total Bilirubin 0.40 (0.2-1.3) mg/dL AST 26 (14-36) U/L ALT 8 (0-35) U/L Alkaline Phosphatase 101 (38-126) U/L Serum Total Protein 6.4 (6.3-8.2) g/dL Albumin 3.9 (3.5-5.0) g/dL - Radiology Exams Ordered Rad Exams-Entire Visit: Radiology Procedures Category Date Time Status CHEST 2 VIEWS (PA AND LAT) Routine Exams 05/09/24 13:27 Completed FLUORO FOR TABITHA-PMG Routine Exams 05/09/24 10:12 Completed SACRUM AND COCCYX Routine Exams 05/09/24 10:12 Completed - Procedures and Test Procedures and Tests throughout Hospitalization: Therapy Orders & Screens 05/09/24 13:01 Respiratory Therapy Consult ONCE Comment: Reason For Exam: Diagnosis: allergic reaction 05/09/24 13:51 PT Screen per Nursing Assess ONCE Comment: Protocol Order Physician Instructions: Greater than 3 points order PT Admission Screenin Reason For Exam: Triggered on Admission Diagnosis: allergic reaction Open Wound/Cellutlitis/Pressure Ulcers: Yes Acute Fx/ORIF/Change in wt bearing status: No Severe MUSCULOSKELETAL pain: No ADL Dysfunction: No Acute CVA w/Hemiparesis/Hemiplegia: No Decreased Functional Mobility/Strength: No Sprain/Strain: No Acute Post-op Mobility Dysfunction: No Total Points: 5 ST Screen per Nursing Assess ONCE Comment: Protocol Order Physician Instructions: Greater than [address] Admission Screening Reason For Exam: Triggered on Admission Diagnosis: allergic reaction CVA/Dysphagia/Aphasia: No Cognitive Deficits: No Dehydration/Nutrition Deficit: No Reflux: No Oral-Motor Difficulties: No Pneumonia: No Senior Care Resident: Yes Total Points: 5 05/10/24 07:00 Respiratory Therapy Assessment DAILY Comment: Diagnosis: allergic reaction Discharge Exam General Appearance: no apparent distress Neurologic Exam: alert, oriented x 3, cooperative Eye Exam: PERRL Ears, Nose, Throat Exam: normal ENT inspection Neck Exam: normal inspection Respiratory Exam: normal breath sounds, lungs clear Cardiovascular Exam: regular rate/rhythm, normal heart sounds Gastrointestinal/Abdomen Exam: soft, normal bowel sounds Pelvic Exam: deferred Rectal Exam: deferred Back Exam: normal inspection Extremity Exam: normal inspection Wound Assessment: Skin/Wound Assessment Wound/Incision Assessment Start: 05/09/24 13:51 Text: Status: Active Freq: Q6H Protocol: Document 05/10/24 01:00 KX (Rec: 05/10/24 01:41 KX [id number]) Wound/Incision Assessment Buttock Wound Assessment Shift Assessment Wound Type Pressure Ulcer Wound Stage Stage I Drainage Amount None General Appearance Open to air Surrounding Tissue Adona Comment redness that blanches in some areas, A few open spots but look in the healing stages. Patient denies pain to this area. Barrier cream applied. Remains true Wound Photo Photo Taken No Final Diagnosis/Problem List - Final Discharge Diagnosis/Problem (1) Allergic reaction caused by a drug Current Visit: Yes Status: Resolved Code(s): T78.40XA - ALLERGY, UNSPECIFIED, INITIAL ENCOUNTER (2) Chronic back pain Current Visit: Yes Status: Chronic Code(s): M54.9 - DORSALGIA, UNSPECIFIED; G89.29 - OTHER CHRONIC PAIN (3) HTN (hypertension) Current Visit: Yes Status: Chronic Code(s): I10 - ESSENTIAL (PRIMARY) HYPERTENSION (4) Afib Current Visit: Yes Status: Chronic Code(s): I48.91 - UNSPECIFIED ATRIAL FIBRILLATION (5) HLD (hyperlipidemia) Current Visit: Yes Status: Chronic Code(s): E78.5 - HYPERLIPIDEMIA, UNSPECIFIED (6) Parkinson disease Current Visit: Yes Status: Chronic Code(s): G20.A1 - PARKINSON'S DIS W/O DYSKINESIA, W/O MENTION OF FLUCTUATIONS (7) Neuropathy Current Visit: Yes Status: Chronic Code(s): G62.9 - POLYNEUROPATHY, UNSPECIFIED - Discharge Discharge Date: 05/10/24 Disposition: Home, Self-Care Condition: Stable Prescriptions: New Dexamethasone [Taperdex] 1.5 mg PO UD 6 Days #21 tab Continue Budesonide/Formoterol Fumarate [Symbicort 80-4.5 Mcg Inhaler] 2 puffs IH BID dilTIAZem HCL [Cartia Xt] 240 mg PO DAILY Lorazepam 1 mg [Ativan 1 MG] 0.5 mg PO BID PRN PRN Reason: Anxiety Albuterol Common Canister [Ventolin Common Canister] 2 inh IH Q4HPRN PRN PRN Reason: Shortness Of Breath Torsemide 20 mg [Demadex 20 mg] 20 mg PO DAILY Tamsulosin HCl 0.4 mg [Flomax 0.4 MG] 0.4 mg PO DAILY Sucralfate 1 gm [Carafate 1 GM] 1 g PO DAILY PRN PRN Reason: Belching Spironolactone 25 mg [Aldactone 25 MG] 25 mg PO DAILY Sertraline HCl 50 mg [Zoloft 50 mg Tablet] 50 mg PO QAM Sertraline HCl 50 mg [Zoloft 50 mg Tablet] 100 tab PO QAM Pramipexole Di-HCl [Pramipexole Dihydrochloride] 1 mg PO HS Ipratropium/Albuterol Sulfate [Iprat-Albut 0.5-3(2.5) mg/3 ml] 1 inh IH QID Pantoprazole 20 mg [Protonix 20MG Tablet] 40 mg PO BID Famotidine 40 mg PO DAILY Carbidopa/Levodopa [Carbidopa-Levo ER 25-100 Tab] 1 tab PO TID Atorvastatin Calcium 40 mg PO HS Mirtazapine 7.5 mg PO HS diphenhydrAMINE HCL [Benadryl] 50 mg PO Q6H PRN PRN Reason: Allergies Rivaroxaban [Xarelto] 15 mg PO DAILY Isosorbide Mononitrate 30 mg [Imdur 30 MG] 30 mg PO DAILY Loratadine 10 mg [Claritin 10 mg] 10 mg PO DAILY Midodrine HCl 2.5 mg PO TID Metoprolol Succinate 25 mg Xl* [Toprol-Xl 25MG Tablets] 25 mg PO QAM Metolazone 2.5 mg [Zaroxolyn 2.5 MG] 2.5 mg PO QAM Magnesium Oxide [Magnesium] 400 mg PO BID Cyclobenzaprine HCl 10 mg [Cyclobenzaprine 10 MG] 10 mg PO TID PRN PRN Reason: Muscle Spasms Cyanocobalamin 1000 Mcg/ml [Cyanocobalamin B-12 1000 MCG/ML] 1,000 mcg IJ UD Buspirone HCl 5 mg [Buspar 5 mg] 10 mg PO TID Bisacodyl 5 mg [Dulcolax 5 mg] 5 mg PO DAILY PRN PRN Reason: Constipation Hydrocodone/Acetaminophen [Hydrocodone-Acetamin 10-325 mg] 1 each PO UD Denosumab 60 mg [Prolia 60 mg Injection] 60 mg SQ UD Ergocalciferol (Vitamin D2) [Vitamin D2] 1,250 mcg PO WEEKLY Follow up with: NEAL HERNANDEZ MD [Primary Care Provider] - 05/17/24 10:00 am
[2024-05-10 05:21] LABS: Hematocrit 35.8 % (34.1-44.9); Mean Cell Volume 88.8 fL (79.4-94.8); Mean Corpuscular Hemoglobin 27.3 pg (25.6-32.2); Mean Corpuscular Hgb Concent. 30.7 g/dL (32.2-35.5); Mean Platelet Volume 11.5 fL (9.4-12.3); Platelet Count 141 x10^3/uL (182-369); Red Blood Count 4.03 x10^6/uL (3.93-5.22); Red Cell Distribution Width 16.2 % (11.7-14.4); White Blood Count 2.2 x10^3/uL (3.98-10.04)
[2024-05-10 05:44] LABS: ANION GAP 11.3 MEQ/L (5-15); BILIRUBIN,TOTAL 0.3 mg/dL (0.2-1.3); Calcium 8.4 mg/dL (8.4-10.2); Creatinine 1 1.12 mg/dL (0.52-1.04); EST GLOMERULAR FILTRATION RATE 55.6 ML/MIN; PREALBUMIN 26.34 mg/dL (17.6-36.0); Potassium 3.9 mmol/L (3.5-5.1); Total Protein 6.3 g/dL (6.3-8.2)
[2024-05-10] MEDS ORDERED: ZOLOFT 50 MG TABLET PO SCH (10:00)
[2024-05-10] MEDS ORDERED: NON-FORMULARY ITEM (Rivaroxaban [Xarelto] 15 MG Tablet) PO SCH (10:00)
[2024-05-10] MEDS ORDERED: Cardizem CD PO SCH (10:00)
[2024-05-10] MEDS: Aldactone 25 MG PO SCH (10:37)
[2024-05-10] MEDS: Flomax 0.4 MG PO SCH (10:37)
[2024-05-10] MEDS: Imdur 30 MG PO SCH (10:37)
[2024-05-10] MEDS: XARELTO 10 MG TABLET PO SCH (10:37)
[2024-05-10] MEDS: ZOLOFT 50 MG TABLET PO SCH (10:37)
[2024-05-10] MEDS: CLARITIN 10 MG PO SCH (10:38)
[2024-05-10] MEDS: Cardizem CD PO SCH (10:38)
[2024-05-10] MEDS: Zaroxolyn 2.5 MG PO SCH (10:38)
[2024-05-10] MEDS: DEMADEX 20 MG PO SCH (10:38)
[2024-05-10] MEDS: Toprol-Xl 25MG Tablets PO SCH (10:39)
[2024-05-10] MEDS: DULCOLAX 5 MG PO PRN (10:39)
[2024-05-10 11:28] VITALS: BP 115/60; PULSE 113; RESP 20; TEMP 97.5; O2SAT 94
[2024-05-16] MEDS ORDERED: VITAMIN D2 PO SCH (10:00)
[2024-05-31] MEDS ORDERED: Cyanocobalamin B-12 1000 MCG/ML IJ SCH (10:00)
== END 2024-05-10 13:50 | disposition home or self-care (01) ==
LOC: SDC-PAIN 09:17 → MED SURG 12:34
PROVIDERS: ADMIT Internal Medicine; ATTEND Internal Medicine
DX: T78.40XA Allergy, unspecified, initial encounter (principal); M54.16 Radiculopathy, lumbar region; M54.9 Dorsalgia, unspecified; G89.29 Other chronic pain; I48.91 Unspecified atrial fibrillation; E78.5 Hyperlipidemia, unspecified; G20.A1 Parkinson's disease without dyskinesia, without mention of fluctuations; G62.9 Polyneuropathy, unspecified; I12.9 Hypertensive chronic kidney disease with stage 1 through stage 4 chronic kidney disease, or unspecified chronic kidney disease; N18.30 Chronic kidney disease, stage 3 unspecified; I50.9 Heart failure, unspecified; L89.301 Pressure ulcer of unspecified buttock, stage 1; Z79.899 Other long term (current) drug therapy
CPT/HCPCS: 36415; 62323; 71046; 72220; 77003; 80053; 84134; 85027; 93268; 94640; 94760; G0378; Q3014; J1100; J1200; J2250; J2704; Q9966; A9270-GY